=== PATIENT | male | born 1945 | race Caucasian/White ===

== ENCOUNTER 2019-02-26 11:39 | Emergency (ER) | payer MEDICARE, BC ==
--- NOTE | 2019-02-26 13:07 | CR ---
Redness swelling. Two views of the right foot. FINDINGS: Normal alignment. No acute fractures. Diffuse soft tissue swelling. Calcaneal spur. No acute fractures are seen. Dictated by Fabiola Matthew MD @ Feb 26 2019 1:05PM Signed by Dr. Fabiola Matthew @ Feb 26 2019 1:06PM
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
[2019-02-26 13:38] VITALS: BP 138/102
== END 2019-02-26 13:37 | disposition home or self-care (01) ==
LOC: MW.ED 11:39
DX: M1A.9XX0 Chronic gout, unspecified, without tophus (tophi) (principal); R94.4 Abnormal results of kidney function studies; Z88.1 Allergy status to other antibiotic agents; Z90.49 Acquired absence of other specified parts of digestive tract
CPT/HCPCS: 36415; 73620-26-RT; 73620-RT; 80053; 84550; 85025; 99283; 99283-25

== ENCOUNTER 2019-03-17 09:46 | Emergency (ER) | payer MEDICARE, BC ==
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
--- NOTE | 2019-03-17 11:11 | CR ---
2 views of the right foot. INDICATION: Pain. IMPRESSION: No visualized fracture. Alignments anatomic. Incidental plantar spur Dictated by Sriram Wiley MD @ Mar 17 2019 11:04AM Signed by Dr. Sriram Wiley @ Mar 17 2019 11:08AM
[2019-03-17 11:14] VITALS: BP 117/78
== END 2019-03-17 11:13 | disposition home or self-care (01) ==
LOC: MW.ED 09:46
DX: L03.115 Cellulitis of right lower limb (principal); Z88.1 Allergy status to other antibiotic agents
CPT/HCPCS: 36415; 73620-26-RT; 73620-RT; 84550; 85025; 99283-25

== ENCOUNTER 2019-05-21 16:15 | Emergency (ER) | payer OTHER, MEDICARE, BC ==
[2019-05-21] MEDS ORDERED: Sodium Chloride 0.9% 10 ML Syringe FLUSH PRN (16:18)
[2019-05-21] MEDS ORDERED: Sodium Chloride 0.9% 2.5 ML Syringe FLUSH PRN (16:18)
[2019-05-21] MEDS ORDERED: Sodium Chloride 0.9% 500 ML IV ONE (16:20)
--- NOTE | 2019-05-21 16:26 | EDM.PDOC ---
ED HPI GENERAL MEDICAL PROBLEM - General Stated Complaint: AMB Time Seen by Provider: 05/21/19 16:17 Source of Information: Reports: Patient History Limitations: Reports: No Limitations - History of Present Illness INITIAL COMMENTS - FREE TEXT/NARRATIVE: History of present illness: []Patient was working steer that are approximately 1100 pounds right now and was run over and trampled over by one. He states he had no loss of consciousness. Patient was brought in by EMS hypertensive with one episode of vomiting in the field arrived awake and speaking, moving all extremities, complaining of neck pain with a scalp laceration and contusion, unequal pupils, laceration to left forearm, abrasion to thoracic back, abrasion to lower left abdomen. He denies any numbness or tingling. Chest pain, shortness of breath, headache, change in vision or abdominal pain. Review of systems: As per history of present illness and below otherwise all systems reviewed and negative. Past medical history: As per history of present illness and as reviewed below otherwise noncontributory. Surgical history: As per history of present illness and as reviewed below otherwise noncontributory. Social history: No reported history of drug or alcohol abuse. Family history: As per history of present illness and as reviewed below otherwise noncontributory. Physical exam: General: Well developed, well nourished in NAD HEENT: Small laceration posterior scalp, positive contusion right temporal area , abrasion over 8 years ago, unequal left 2 mm right 4 mm, negative for conjunctival pallor or scleral icterus, mucous membranes moist, no malocclusion, , no septal hematoma, throat clear, neckin c-collar, trachea midline. stridor Lungs: signs of external traumaClear to auscultation, breath sounds equal bilaterally, chest nontender. Heart: S1S2, regular, negative for clicks, rubs, or JVD. Abdomen:Abrasion left lower abdomen, NABS, Soft, nondistended, nontenderNo rebound or guarding . Negative for masses or hepatosplenomegaly. Negative for costovertebral tenderness. Back: Positive transverse are abrasion across T-spine and a few abrasions right posterior back no vertebral step-offs or tenderness on palpation Pelvis: Stable nontender. No crepitance Genitourinary: no Blood in the meatus, Positive small abrasion and left groin Rectal: Sensation intact, normal sphincter tone Extremities: moving all extremities, 4 cm laceration left forearm, Neurovascular unremarkable. Neuro: Awake, alert, oriented. Cranial nerves II through XII unremarkable. Motor and sensory unremarkable throughout. Exam nonfocal. Skin:warm and dry Diagnostics: CT head, cervical spine, abdomen and pelvis chest, thoracic spine Therapeutics: patient's head was immobilized, tetanus status updated, Ancef 1 g, morphine and Zofran IV given, ED Course: patient remained stable while in the ED Family initially wanted patient to go to [facility] who accepted him however a flight was unable to travel due to whether [facility] then called after Greg accepted patient Impression: multiple trauma, C1 ring fracture the arch to transverse foramen, C6 right superior articular process fracture, right C6 anterior tibial fracture, T1 compression fracture, T2 burst fracture Prescriptions: none Plan: Patient will be flown to [place] Definitive disposition and diagnosis as appropriate pending reevaluation and review of above. Neck Pain Score (Numeric/FACES): 6 - Related Data Allergies Allergy/AdvReac Type Severity Reaction Status Date / Time amoxicillin Allergy upset Verified 05/21/19 18:13 stomach Home Meds: Home Meds Allopurinol [Zyloprim] 100 mg PO DAILY 05/21/19 [History] Past Medical History - Past Health History Medical/Surgical History: Denies Medical/Surgical History HEENT History: Reports: None Cardiovascular History: Reports: None Respiratory History: Reports: None Gastrointestinal History: Reports: GERD Genitourinary History: Reports: Renal Calculus Musculoskeletal History: Reports: Gout Neurological History: Reports: None Psychiatric History: Reports: None Endocrine/Metabolic History: Reports: None Hematologic History: Reports: None Immunologic History: Reports: None Oncologic (Cancer) History: Reports: None Dermatologic History: Reports: Other (See Below) Other Dermatologic History: sebaceous cysts to back - Infectious Disease History Infectious Disease History: Reports: Chicken Pox, Measles, Mumps - Past Surgical History Head Surgeries/Procedures: Reports: None HEENT Surgical History: Reports: None Cardiovascular Surgical History: Reports: None Respiratory Surgical History: Reports: None GI Surgical History: Reports: Appendectomy Male Surgical History: Reports: None Endocrine Surgical History: Reports: None Neurological Surgical History: Reports: None Musculoskeletal Surgical History: Reports: Other (See Below) Other Musculoskeletal Surgeries/Procedures:: quad repair on right in 2010 and left in 2013 Oncologic Surgical History: Reports: None Dermatological Surgical History: Reports: Other (See Below) Social & Family History - Family History Family Medical History: Noncontributory - Caffeine Use Caffeine Use: Reports: Coffee - Living Situation & Occupation Living situation: Reports: , with Spouse Review of Systems - Review of Systems Review Of Systems: See Below ED EXAM, GENERAL - Physical Exam Exam: See Below (History of present illness) Course - Vital Signs Last Recorded V/S: Last Vital Signs Temp 95.6 F 05/21/19 16:15 Pulse 89 05/21/19 16:15 Resp 18 05/21/19 16:15 BP 174/95 H 05/21/19 16:15 Pulse Ox 91 L 05/21/19 16:15 - Orders/Labs/Meds Orders: Active Orders 24 hr Category Date Time Status Vaccines to be Administered [RC] PER UNIT ROUTINE Care 05/21/19 16:50 Active Sodium Chloride 0.9% [Saline Flush] Med 05/21/19 16:18 Active 10 ml FLUSH ASDIRECTED PRN Sodium Chloride 0.9% [Saline Flush] Med 05/21/19 16:18 Active 2.5 ml FLUSH ASDIRECTED PRN Saline Lock Insert [OM.PC] Stat Oth 05/21/19 16:17 Ordered Medication Orders Sodium Chloride (Saline Flush) 10 ml FLUSH ASDIRECTED PRN PRN Reason: Keep Vein Open Sodium Chloride (Saline Flush) 2.5 ml FLUSH ASDIRECTED PRN PRN Reason: Keep Vein Open Labs: Laboratory Tests 05/21/19 05/21/19 Range/Units 17:27 17:27 WBC 10.19 (4.0-11.0) K/uL RBC 4.75 (4.50-5.90) M/uL Hgb 15.4 (13.0-17.0) g/dL Hct 46.2 (38.0-50.0) % MCV 97.3 (80.0-98.0) fL MCH 32.4 H (27.0-32.0) pg MCHC 33.3 (31.0-37.0) g/dL RDW Std Deviation 46.3 (28.0-62.0) fl RDW Coeff of Booker 13 (11.0-15.0) % Plt Count 164 (150-400) K/uL MPV 9.30 (7.40-12.00) fL Neut % (Auto) 81.9 H (48.0-80.0) % Lymph % (Auto) 9.2 L (16.0-40.0) % [place] % (Auto) 8.2 (0.0-15.0) % Eos % (Auto) 0.5 (0.0-7.0) % Baso % (Auto) 0.2 (0.0-1.5) % Neut # (Auto) 8.3 H (1.4-5.7) K/uL Lymph # (Auto) 0.9 (0.6-2.4) K/uL [place] # (Auto) 0.8 (0.0-0.8) K/uL Eos # (Auto) 0.1 (0.0-0.7) K/uL Baso # (Auto) 0.0 (0.0-0.1) K/uL Sodium 141 (136-148) mmol/L Potassium 4.3 (3.5-5.1) mmol/L Chloride 104 (98-107) mmol/L Carbon Dioxide 26.1 (21.0-32.0) mmol/L BUN 23 H (7.0-18.0) mg/dL Creatinine 1.5 H (0.8-1.3) mg/dL Est Cr Clr Drug Dosing TNP Estimated GFR (MDRD) 45.6 ml/min Glucose 184 H (74-106) mg/dL Calcium 9.1 (8.5-10.1) mg/dL Total Bilirubin 0.6 (0.2-1.0) mg/dL AST 34 (15-37) IU/L ALT 45 (14-63) IU/L Alkaline Phosphatase 47 (46-116) U/L Total Protein 7.2 (6.4-8.2) g/dL Albumin 3.8 (3.4-5.0) g/dL Globulin 3.4 (2.6-4.0) g/dL Albumin/Globulin Ratio 1.1 (0.9-1.6) Lipase 98 (73-393) U/L Meds: Medications Generic Name Dose Route Start Last Admin Trade Name Freq PRN Reason Stop Dose Admin Sodium Chloride 10 ml 05/21/19 16:18 Saline Flush FLUSH ASDIRECTED PRN Keep Vein Open Sodium Chloride 2.5 ml 05/21/19 16:18 Saline Flush FLUSH ASDIRECTED PRN Keep Vein Open Discontinued Medications Generic Name Dose Route Start Last Admin Trade Name Freq PRN Reason Stop Dose Admin Diphtheria/Tetanus/Acell Pertussis 0.5 ml 05/21/19 16:49 05/21/19 17:08 Adacel IM 05/21/19 16:50 0.5 ml .ONCE ONE Administration Sodium Chloride 500 mls @ 999 mls/hr 05/21/19 16:20 05/21/19 17:18 Normal Saline IV 05/21/19 16:50 Not Given .Bolus ONE Cefazolin Sodium/Dextrose 1 gm 50 mls @ 100 mls/hr 05/21/19 16:49 05/21/19 17 :08 / Premix IV 05/21/19 17:18 100 mls/hr ONETIME ONE Administration Iopamidol 100 ml 05/21/19 16:54 05/21/19 16:54 Isovue Multipack-370 (76%) IVPUSH 05/21/19 16:55 100 ml ONETIME ONE Administration Morphine Sulfate Confirm 05/21/19 17:14 05/21/19 18:08 Morphine Administered 05/21/19 17:15 Not Given Dose 2 mg .ROUTE .STK-MED ONE Morphine Sulfate 2 mg 05/21/19 18:05 05/21/19 17:17 Morphine IVPUSH 05/21/19 18:06 2 mg ONETIME ONE Administration Ondansetron HCl Confirm 05/21/19 17:14 05/21/19 18:08 Zofran Administered 05/21/19 17:15 Not Given Dose 4 mg .ROUTE .STK-MED ONE Ondansetron HCl 4 mg 05/21/19 18:06 05/21/19 18:07 Zofran IVPUSH 05/21/19 18:07 4 mg ONETIME ONE Administration Departure - Departure Time of Disposition: 18:42 Disposition: DC/Tfer to [facility] Condition: Serious Clinical Impression: C1 cervical fracture Qualifiers: Encounter type: initial encounter Fracture type: closed Fracture morphology: unspecified fracture morphology Fracture alignment: displaced Qualified Code(s) : S12.000A - Unspecified displaced fracture of first cervical vertebra, initial encounter for closed fracture C6 cervical fracture Qualifiers: Encounter type: initial encounter Fracture type: closed Fracture morphology: unspecified fracture morphology Fracture alignment: nondisplaced Qualified Code( s): S12.501A - Unspecified nondisplaced fracture of sixth cervical vertebra, initial encounter for closed fracture Compression fracture of T1 vertebra Qualifiers: Encounter type: initial encounter Qualified Code(s): S22.010A - Wedge compression fracture of first thoracic vertebra, initial encounter for closed fracture Burst fracture of thoracic vertebra Qualifiers: Encounter type: initial encounter Fracture type: closed Qualified Code(s): S22.001A - Stable burst fracture of unspecified thoracic vertebra, initial encounter for closed fracture Clinical Impression: (Ruled Out): T12 compression fracture, T12 burst fracture - Discharge Information Referrals: Ricardo Marcus MD [Primary Care Provider] - Forms: ED Department Discharge - My Orders Last 24 Hours: My Active Orders 05/21/19 16:17 Saline Lock Insert [OM.PC] Stat 05/21/19 16:18 Sodium Chloride 0.9% [Saline Flush] 10 ml FLUSH ASDIRECTED PRN Sodium Chloride 0.9% [Saline Flush] 2.5 ml FLUSH ASDIRECTED PRN 05/21/19 16:50 Vaccines to be Administered [RC] PER UNIT ROUTINE - Assessment/Plan Last 24 Hours: My Active Orders 05/21/19 16:17 Saline Lock Insert [OM.PC] Stat 05/21/19 16:18 Sodium Chloride 0.9% [Saline Flush] 10 ml FLUSH ASDIRECTED PRN Sodium Chloride 0.9% [Saline Flush] 2.5 ml FLUSH ASDIRECTED PRN 05/21/19 16:50 Vaccines to be Administered [RC] PER UNIT ROUTINE
[2019-05-21] MEDS ORDERED: ceFAZolin 1 GM in Premix Bag 1 BAG IV ONE (16:49)
[2019-05-21] MEDS ORDERED: Diphtheria,Pertussis(Acell),Tetanus Vaccine 0.5 ML Syringe IM ONE (16:49)
--- NOTE | 2019-05-21 16:53 | CT ---
Indication: Run over by 120 pounds steer Technique: Noncontrast head CT scan Comparison: No comparison studies are available Findings: Axial noncontrast images through the brain parenchyma demonstrates no acute intracranial hemorrhage or mass. No midline shift. No abnormal extra-axial air or fluid collections are seen. Paranasal sinuses, mastoid air cells, as skull and scalp appear unremarkable. Impression: 1. No acute intracranial hemorrhage or mass. Please refer to cervical spine CT report for cervical spine findings. Please note that all CT scans at this facility use dose modulation, iterative reconstruction, and/or weight-based dosing when appropriate to reduce radiation dose to as low as reasonably achievable. Dictated by Fabiola Matthew MD @ May 21 2019 4:47PM Signed by Dr. Fabiola Matthew @ May 21 2019 4:51PM
[2019-05-21] MEDS ORDERED: Iopamidol 755 MG/ML 200 ML Multipack Bottle IVPUSH ONE (16:54)
[2019-05-21] MEDS ORDERED: Ondansetron 4 MG/2 ML SDV ONE (17:14)
[2019-05-21] MEDS ORDERED: Morphine 2 MG/ML Syringe ONE (17:14)
--- NOTE | 2019-05-21 17:18 | CT ---
INDICATION: Run over by 1200 pounds steer. TECHNIQUE: CT of the cervical spine without contrast. Coronal and sagittal reformats are included. COMPARISON: None. FINDINGS: Two-part fracture of the C1 ring with vertical oriented fracture line involving the right articular pillar as well as a second nondisplaced fracture involving the posterior C1 arch near the midline. The right articular pillar fracture demonstrates 5 millimeters of displacement between the fracture fragments, although the condylar-C1 and C1-2 articulations remain in normal alignment. Craniocervical junction remains in normal alignment. Nondisplaced fracture involving the right C6 superior articular process, without evidence of facet joint instability. Minimally displaced fracture of the right C6 anterior tubercle with extension into the foramen transversarium. T2 vertebral body burst fracture with fracture line extending to the posterior vertebral body cortex, but no significant retropulsion of osseous fragments into the spinal canal. Mild T2 vertebral body height loss. Cervical spondylosis with advanced disc degeneration at C3-4 through C6-7. Uncovertebral and facet hypertrophy contribute to moderate to advanced neural foraminal stenosis at C4-5, C5-6 and C6-7 bilaterally. No high-grade spinal canal stenosis. Thick vascular calcifications right carotid bulb. Imaged soft tissue structures of the neck are otherwise normal in appearance. IMPRESSION: 1. Two-part fracture of the C1 ring, a "Torres fracture". Fracture line involving the right C1 articular process demonstrates mild separation. The posterior C1 arch fracture is essentially nondisplaced. Craniocervical junction remains in normal alignment. 2. Nondisplaced fracture of the right C6 superior articular process. 3. Minimally displaced fracture of the right C6 anterior tubercle with extension into the foramen transversarium. Vertebral artery injury is a consideration. 4. T1 burst fracture with mild vertebral body height loss and no retropulsion of osseous fragments into the spinal canal. 5. No traumatic malalignment of the cervical spine. 6. Results called to Dr. Ybarra By Dr. Fabiola Matthew on 05/21/2019 at 5:16 p.m. Please note that all CT scans at this facility use dose modulation, iterative reconstruction, and/or weight-based dosing when appropriate to reduce radiation dose to as low as reasonably achievable. Dictated by Ray Spring MD @ May 22 2019 9:42AM Signed by Dr. Ray Spring @ May 22 2019 10:06AM
--- NOTE | 2019-05-21 17:27 | CT ---
Indication: Run over by 1200 pound steer, pain Technique: Routine noncontrast CT thoracic spine. Please note that all CT scans at this facility use dose modulation, iterative reconstruction, and/or weight-based dosing when appropriate to reduce radiation dose to as low as reasonably achievable. Comparison: No comparison Findings: Mildly displaced and comminuted fracture of the superior endplate of T2. Mild convexity of the posterior cortex is noted without significant bony fragment extrusion into the spinal canal. Spinous processes intact. No paraspinal soft tissue mass or pneumothorax. Bibasilar fibrosis in both lung bases. Multilevel degenerative disc disease. No mediastinal adenopathy. Vascular calcifications. Impression: Mildly displaced and comminuted fracture involving the superior endplate of T2 with mild posterior cortical involvement. Please note that all CT scans at this facility use dose modulation, iterative reconstruction, and/or weight-based dosing when appropriate to reduce radiation dose to as low as reasonably achievable. Dictated by Ministerio Pan MD @ May 21 2019 5:14PM Signed by Dr. Ministerio Pan @ May 21 2019 5:24PM
--- NOTE | 2019-05-21 17:27 | CT ---
Indication: Run over by steer Technique: Contrast enhanced CT abdomen and pelvis. Coronal surgery for any images obtained Comparison: No comparison studies are available. Findings: Small hiatal hernia. Fatty liver. Gallbladder spleen pancreas adrenal glands are unremarkable. Symmetric enhancement of both kidneys. Diverticulosis. Bowel is unremarkable. There is a cystic structure which abuts the 2nd/3rd portion of the duodenum measuring 2.4 by 1.6 centimeters probably represents a duplication cyst. No free fluid or free air. Prostate gland mildly prominent. Urinary bladder is unremarkable. No acute fracture seen. Impression: 1. No solid or hollow organ injury in the abdomen or pelvis. No acute findings in the abdomen or pelvis. No free air free fluid. 2. No acute fracture. Please note that all CT scans at this facility use dose modulation, iterative reconstruction, and/or weight-based dosing when appropriate to reduce radiation dose to as low as reasonably achievable. Dictated by Fabiola Matthew MD @ May 21 2019 5:17PM Signed by Dr. Fabiola Matthew @ May 21 2019 5:26PM
--- NOTE | 2019-05-21 17:33 | CT ---
Indication: Run over by 1200 pounds steer Technique: Routine post contrast CT chest. 100 cc Isovue 370 used intravenously. Please note that all CT scans at this facility use dose modulation, iterative reconstruction, and/or weight-based dosing when appropriate to reduce radiation dose to as low as reasonably achievable. Comparison: No comparison Findings: There is a burst type fracture of the T2 vertebral body with mild loss of anterior vertebral body height. The fracture appears to extend to the inferior endplate and there is mild convexity of the posterior cortex. Multilevel degenerative disc disease. No pneumothorax or pulmonary contusion. Intact sternum. No adenopathy. Vascular calcifications. Fatty infiltration liver. Normal adrenal glands and gallbladder. Normal visualized pancreas. Bibasilar fibrosis. No pleural effusion. No extrapleural hematoma. Impression: T2 burst fracture. Pulmonary fibrosis, mild-moderate. No pneumothorax. No intrathoracic adenopathy. No pulmonary contusion. No pleural effusion. No rib fracture. Please note that all CT scans at this facility use dose modulation, iterative reconstruction, and/or weight-based dosing when appropriate to reduce radiation dose to as low as reasonably achievable. Dictated by Ministerio Pan MD @ May 21 2019 5:25PM Signed by Dr. Ministerio Pan @ May 21 2019 5:31PM
[2019-05-21 17:55] LABS: BLOOD UREA NITROGEN,BUN 23 mg/dL (7.0-18.0); CARBON DIOXIDE,CO2 26.1 mmol/L (21.0-32.0); CHLORIDE,CL 104 mmol/L (98-107); GLUCOSE RANDOM 184 mg/dL (74-106); LIPASE 98 U/L (73-393); POTASSIUM,K 4.3 mmol/L (3.5-5.1); SODIUM,NA 141 mmol/L (136-148)
[2019-05-21] MEDS ORDERED: Morphine 2 MG/ML Syringe IVPUSH ONE (18:05)
[2019-05-21] MEDS ORDERED: Ondansetron 4 MG/2 ML SDV IVPUSH ONE (18:06)
[2019-05-21 18:33] VITALS: BP 151/98; PULSE 90
== END 2019-05-21 17:38 | disposition critical access hospital (66) ==
LOC: MW.ED 16:15
DX: S12.031A Nondisplaced posterior arch fracture of first cervical vertebra, initial encounter for closed fracture (principal); S12.501A Unspecified nondisplaced fracture of sixth cervical vertebra, initial encounter for closed fracture; S22.010A Wedge compression fracture of first thoracic vertebra, initial encounter for closed fracture; S22.021A Stable burst fracture of second thoracic vertebra, initial encounter for closed fracture; S51.812A Laceration without foreign body of left forearm, initial encounter; S01.01XA Laceration without foreign body of scalp, initial encounter; S30.811A Abrasion of abdominal wall, initial encounter; Z23 Encounter for immunization; Z88.1 Allergy status to other antibiotic agents; Z79.899 Other long term (current) drug therapy; Z87.442 Personal history of urinary calculi; W22.8XXA Striking against or struck by other objects, initial encounter
CPT/HCPCS: 36415; 70450; 71260; 72125; 72128; 74177; 80053; 83690; 85025; 90471; 90715; 93005; 96365; 96375; 99285; J0690; J2270; J2405; Q9967

== ENCOUNTER 2021-12-22 14:32 | Emergency (ER) | payer MEDICARE, BC ==
[2021-12-22 15:33] LABS: BLOOD UREA NITROGEN,BUN 23 mg/dL (7.0-18.0); CARBON DIOXIDE,CO2 25.9 mmol/L (21.0-32.0); CHLORIDE,CL 103 mmol/L (98-107); GLUCOSE RANDOM 108 mg/dL (74-106); POTASSIUM,K 4.3 mmol/L (3.5-5.1); SODIUM,NA 138 mmol/L (136-148)
[2021-12-22 17:33] VITALS: BP 147/68; PULSE 74
== END 2021-12-22 17:34 | disposition home or self-care (01) ==
LOC: MW.ED 14:32
DX: R00.1 Bradycardia, unspecified (principal); Z88.0 Allergy status to penicillin
CPT/HCPCS: 36415; 71045; 71045-26; 80053; 83735; 84484; 85025; 93005; 93010; 99284; 99284-25

== ENCOUNTER 2023-07-05 19:03 | Emergency (ER) | payer MEDICARE, BC ==
[2023-07-05] MEDS ORDERED: Lidocaine 1% 5 ML VIAL INJECT ONE (19:21)
[2023-07-05] MEDS ORDERED: Bacitracin Oint 28.35 GM Tube TOP SCH ×2 (22:00)
[2023-07-05 22:36] VITALS: BP 155/102; PULSE 89
== END 2023-07-05 21:45 | disposition home or self-care (01) ==
LOC: MW.ED 19:03
DX: S01.81XA Laceration without foreign body of other part of head, initial encounter (principal); S61.210A Laceration without foreign body of right index finger without damage to nail, initial encounter; Z88.0 Allergy status to penicillin; W55.22XA Struck by cow, initial encounter
CPT/HCPCS: 12002; 12013; 70450; 72125; 73130; 99283; A9270; J3490

== ENCOUNTER 2023-07-11 12:45 | Emergency (ER) | payer MEDICARE, BC ==
[2023-07-11 13:33] VITALS: BP 153/64; PULSE 76
== END 2023-07-11 13:43 | disposition left against medical advice (07) ==
LOC: MW.ED 12:45
DX: Z48.02 Encounter for removal of sutures (principal)
CPT/HCPCS: 99281

== ENCOUNTER 2024-07-07 13:27 | Emergency (ER) | payer MEDICARE, BC ==
[2024-07-07 13:39] VITALS: BP 139/74; PULSE 65
== END 2024-07-07 15:39 | disposition home or self-care (01) ==
LOC: MW.ED 13:27
DX: M79.672 Pain in left foot (principal); Z88.0 Allergy status to penicillin; Z90.49 Acquired absence of other specified parts of digestive tract
CPT/HCPCS: 73630-26-LT; 73630-LT; 99283